=== PATIENT | male | born 1980 | race Hispanic/Latino ===

== ENCOUNTER 2022-01-15 17:19 | Emergency (ER) | payer OTHER, MEDICAID, SELFPAY ==
[2022-01-15 17:21] VITALS: BP 138/100; PULSE 78; RESP 14; TEMP 36.4; O2SAT 98; BMI 25.4
--- NOTE | 2022-01-15 17:52 | EDS_ITS ---
HPI <BETY Soriano - Last Filed: 01/15/22 18:53> History of Present Illness Chief Complaint: Head Injury Narrative Narrative: 41-year-old male with no significant medical history was at work at [employer], he was working with a piece of equipment that went up and down, a piece of metal went down, striking the left side of the head. Patient states he did not get knocked out however he does not remember everything about the injury. He states that he feels spacey, he felt nauseated and dizzy. Patient denies any vomiting. 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 Other than a headache, the patient feels better. He is here for evaluation [facility] <BETY Soriano - Last Filed: 01/15/22 18:53> [facility] Home Medications ondansetron 4 mg disintegrating tablet 4 mg PO Q8H PRN PRN Nausea #10 tabs 01/16/22 [Rx Last Taken Unknown] Allergy/AdvReac Type Severity Reaction Status Date / Time No Known Allergies Allergy Verified 01/16/22 14:34 Surgical History History of appendectomy Social History Smoking Status: Current every day smoker tobacco type: cigarettes ROS <BETY Soriano - Last Filed: 01/15/22 18:53> ROS ED ROS Narrative Constitutional: Negative for fever, chills, weight loss, weakness Eyes: Negative for vision loss, vision change, double vision ENT: Negative for any sore throat, ear pain, congestion Cardiovascular: Negative for any chest pain, tightness, palpitations Respiratory: Negative for any cough, sputum production, hemoptysis, dyspnea, dyspnea on exertion, orthopnea Gastrointestinal: Negative for any abdominal pain, nausea, vomiting, diarrhea, constipation, blood in stool, blood in vomit : Negative for any urinary frequency, dysuria, retention, blood in urine Muscle skeletal: Negative for any muscle joint pain, stiffness, myalgias, arthralgias, neck pain, back pain Neurological: Negative for any syncope, numbness or tingling, dizziness., Positive for headache Skin: Negative for any rashes, lumps, itching, abrasions, lacerations Psychiatric: Negative for any depression, anxiety, stress, suicidal ideation, homicidal ideation Hematologic: Negative for any easy bruising, excessive bruising, easy bleeding Allergies: Negative for any eczema, hives, rash EXAM <BETY Soriano - Last Filed: 01/15/22 18:53> Physical Exam Narrative Exam Narrative: Vital signs reviewed. Patient alert and orient x4. HEET: Head normocephalic atraumatic, TMs clear bilaterally. Posterior pharynx is clear, moist mucous membranes. Nares clear bilaterally. Pupils are equal round reactive to light. Negative for any hemotympanum, negative for any hematoma. Patient does have an abrasion to the left parietal area, slight hematoma. Neck: Supple with no lymphadenopathy or tenderness. No signs of meningismus, negative jolt sign. Cardiac: Regular rate and rhythm no murmurs gallops or rubs, equal peripheral pulses bilaterally. Respiratory: Lungs clear to auscultation bilaterally. No chest tenderness. Abdomen: Soft, nontender, nondistended. No abdominal bruit or pulsatile masses. No hepatosplenomegaly Extremities: No peripheral edema, no signs of gross trauma or deformity. Active full range of motion of all extremities. Neuro: Cranial nerves II through XII intact, no focal neurological deficits. Skin: Clean dry and intact with no rash, purpura, petechiae, vesicles or pustules. Backs/flank: No CVA tenderness, no midline spinal tenderness, no deformity. Psych: Normal mood and affect. No SI, HI or acute psychosis. Const Vital Signs: 01/15/22 17:21 01/15/22 17:31 Temperature 97.6 F L Temperature Source Temporal Pulse Rate 78 Respiratory Rate 14 Respiratory Effort Normal Non-Labored Respiratory Depth Normal Respiratory Pattern Normal Blood Pressure 138/100 H Blood Pressure Mean 112 Pulse Ox 98 Oxygen Delivery Method Room Air Positive well nourished and well developed General Appearance ED: well developed <Dr. Marylin Swift DO - Last Filed: 01/18/22 08:53> Physical Exam Const Vital Signs: 01/15/22 17:21 01/15/22 17:31 Temperature 97.6 F L Temperature Source Temporal Pulse Rate 78 Respiratory Rate 14 Respiratory Effort Normal Non-Labored Respiratory Depth Normal Respiratory Pattern Normal Blood Pressure 138/100 H Blood Pressure Mean 112 Pulse Ox 98 Oxygen Delivery Method Room Air MDM <BETY Soriano - Last Filed: 01/15/22 18:53> MDM Radiography Diagnostic Testing: Clinical Impression(s) from Imaging Studies Brain CT 01/15/22 18:00 IMPRESSION: No acute intracranial finding. Electronically Signed: Kaiden Flaherty MD at 19:14 EDT , Treatment and Re-Evaluation Narrative: Patient appears well, patient appears nontoxic, vital signs are stable. Patient presents to the emergency department after head injury while at work. Patient physical examination is consistent with a concussion. Patient did receive CT scan of the brain which was unremarkable for any acute process. Patient will be diagnosed with a concussion, hematoma to the left parietal scalp. Patient instructed to use ibuprofen, Tylenol, he will maintain hydration and follow-up with the [facility]. He is instructed to return for any worsening symptoms. He may return to work tomorrow however he instructed to maintain hydration and to return for any worsening headache, fever, chills, nausea or vomiting. Patient stable for discharge <Dr. Marylin Swift, DO - Last Filed: 01/18/22 08:53> [facility] Narrative Medical decision making narrative: I have personally performed a face to face assessment of the patient and have reviewed the DAVID Note. I performed a substantive portion of the visit including all aspects of the following. My lewis findings include: History is patient is a 41-year-old male with no significant past medical history presenting with head close head injury. This occurred at work. Patient was struck on the head by a piece of metal that weighs proximally 60 pounds was on a hedge. It fell down hitting the left side of his head. He was dazed and does not remember the details of the event but denies any loss of conscious. He is not on any blood thinners. Initially had some tingling on the left side of the body but this is since resolved. Denies any vision changes. No other complaints at this time. Exam is Patient seen in bed. No acute distress. Head normocephalic with contusion/abrasion to the right temporal/parietal scalp. No signs of obvious skull fracture. Eyes PERRL and EOMI. Moist mucosal membranes. Neck is supple with normal range of motion. No midline tenderness. Chest atraumatic. No chest wall tenderness or crepitus. Lungs clear to auscultation bilaterally. Heart regular rate and rhythm. Abdomen soft nontender. Cranial nerves II through XII grossly intact. No focal neurologic deficits appreciated. Normal movement of the extremities. Normal coordination. Patient has approximately 4 cm linear but slightly irregular abrasion/contusion to the left scalp as described above. No other wounds appreciated Medical Decison Making patient is evaluated for head injury at work. Workmen's Compensation prior work as well. CT of the brain does not show any acute skull fracture or intracranial findings. Likely patient has a closed head injury with concussion. Will be discharged home with concussion care instructions. He verbalized agreement understand this plan. Is given dose of Zofran in the emergency room. Other additions or changes: [None] Radiography Diagnostic Testing: Clinical Impression(s) from Imaging Studies Brain CT 01/15/22 18:00 IMPRESSION: No acute intracranial finding. Electronically Signed: Kaiden Flaherty MD at 19:14 EDT , Discharge Plan Triage Chief Complaint: Head Injury ED Midlevel Provider: Wilfrido Guerra ED Provider: Marylin Swift Dx/Rx/DC Orders Clinical Impression: Concussion, Hematoma of left parietal scalp Instructions: After a Concussion, Concussion Dc, ED Scalp Contusion, ED Hematoma Prescriptions: No Action ondansetron [ondansetron] 4 mg tablet,disintegrating 4 mg PO Q8H PRN PRN (Reason: Nausea) Qty: 10 0RF Primary Care Provider: Care Physician,No Primary Referrals: Care Physician,No Primary [Primary Care Provider] - Clinic,[facility] [NON-STAFF] - Activity Restrictions/Additional Instructions: Please use ibuprofen, Tylenol for any pain. Please follow-up with the [facility] clinic. Print Language: Chinese Disposition Disposition: Home, Self Care Discharge Date/Time: 01/15/22 19:33
--- NOTE | 2022-01-15 18:00 | CT_ITS ---
STUDY: CT BRAIN WITHOUT CONTRAST REASON FOR EXAM: Male, 41 years old. Pain after trauma RADIATION DOSAGE (If Supplied By Facility): CTDIvol = ( 44.99 ) mGy, DLP = ( 863.60 ) mGycm TECHNIQUE: Transaxial CT imaging of the brain was performed without administration of intravenous contrast material. Individualized dose optimization techniques were used for this CT. COMPARISON: No relevant priors. FINDINGS: There is no intra-/extra-axial fluid collection, mass effect, or midline shift. The reeves/white matter junction is preserved. The basal cisterns are patent. Minimal mucoperiosteal thickening of the bilateral maxillary sinuses is seen. There is old blowout fracture of the medial wall of the left lobe.. CT/Brain/Head without Contrast IMPRESSION: No acute intracranial finding. Electronically Signed: Kaiden Flaherty MD at 19:14 EDT ,
== END 2022-01-15 19:33 | disposition home or self-care (01) ==
PROVIDERS: Emergency Provider Emergency Medicine; Visit Provider Emergency Medicine
DX: S06.0X0A Concussion without loss of consciousness, initial encounter (principal); S00.03XA Contusion of scalp, initial encounter; W20.8XXA Other cause of strike by thrown, projected or falling object, initial encounter; Y93.89 Activity, other specified; Y99.0 Civilian activity done for income or pay; Y92.63 Factory as the place of occurrence of the external cause; F17.210 Nicotine dependence, cigarettes, uncomplicated
CPT/HCPCS: 70450; 99282

== ENCOUNTER 2022-01-16 14:31 | Emergency (ER) | payer OTHER, SELFPAY ==
[2022-01-16 14:31] VITALS: BP 143/93; PULSE 72; RESP 16; TEMP 36.3; O2SAT 97; BMI 31.2
--- NOTE | 2022-01-16 14:42 | EX.ED.DYSGE1 ---
HPI History of Present Illness Chief Complaint: Head Injury Detail of Chief Complaint: Head injury/concussion symptoms Informant: patient Narrative Narrative: Patient presents to the emergency department with complaint of a head injury that occurred yesterday while at work. Patient states that a piece of metal hit him on the left side of the head. He was not knocked unconscious. He was seen in the emergency department and had a CT scan of the brain which was unremarkable. Patient states that he still not feeling well. He is having a hard time finding words to say. He complains of a headache he has had nausea as well. He denies vomiting. Patient has taken Tylenol it does seem to help his headache. Patient still feels lightheaded and dizzy with walking. Prior similar symptoms: No PFSH PFSH Home Medications ondansetron 4 mg disintegrating tablet 4 mg PO Q8H PRN PRN Nausea #10 tabs 01/16/22 [Rx Last Taken Unknown] Allergy/AdvReac Type Severity Reaction Status Date / Time No Known Allergies Allergy Verified 01/16/22 14:34 Surgical History History of appendectomy Social History Smoking Status: Current every day smoker tobacco type: cigarettes ROS ROS ED Review of Systems ROS Unobtainable: other Constitutional Constitutional ED: Reports lethargy; Denies chills, fever(s), sweats or weight loss Eyes Eyes: Denies blurry vision, change in vision or diplopia ENT ENT ED: Denies rhinorrhea or sore throat Cardiovascular Cardiovascular: Reports chest pain and racing heartbeat; Denies orthopnea Respiratory/Chest Respiratory/Chest: Reports dyspnea and dyspnea on exertion; Denies cough, orthopnea or sputum Gastrointestinal Gastrointestinal: Reports nausea; Denies abdominal pain, diarrhea or vomiting Genitourinary Genitourinary ED: Denies dysuria, hematuria or urinary frequency Musculoskeletal Musculoskeletal: Denies arthralgias, back pain, myalgias or neck pain Integumentary Denies abscess, Abrasions or rash Neurologic Neurologic: Reports headache(s) and other Details: Dizziness ; Denies weakness Psychiatric Psychiatric: Denies anxiety, depression or suicidal thoughts Endocrine Endocrinology: Denies polydipsia, polyphagia or polyuria Hematologic/Lymphatic Hematologic/Lymphatic: Denies easy bleeding, easy bruising or lymphadenopathy Allergic/Immunologic Allergic/Immunologic ED: Denies mouth swelling, tongue swelling or urticaria EXAM Physical Exam Const Vital Signs: 01/16/22 14:31 01/16/22 14:36 Temperature 97.3 F L Temperature Source Temporal Pulse Rate 72 Respiratory Rate 16 Respiratory Effort Normal Blood Pressure 143/93 H Blood Pressure Mean 109 Pulse Ox 97 Oxygen Delivery Method Room Air Positive well nourished and well developed General Appearance ED: well developed and NAD HEENT Reports TM's clear and moist mucous membranes normocephalic and atraumatic; Negative for trauma or tenderness Tympanic Membrane ED: Yes TM's clear Eyes PERRL and EOMs intact bilaterally General Eye ED: Negative for pale conjunctiva or scleral icterus Neck no lymphadenopathy, supple and no JVD General: Negative for tenderness Chest Wall inspection of chest normal and palpation of chest normal Chest: Negative for tenderness Resp normal respiratory effort and clear to auscultation bilaterally Effort and Inspection: Negative for respiratory distress or pain with movement Auscultation: Negative for rhonchi, wheezes or diminished lung sounds Cardio regular rate, regular rhythm, S1 normal heart sound, S2 normal heart sound and no murmurs Peripheral Pulses: pulses 2+ throughout GI normal to inspection, nondistended, normoactive bowel sounds, soft to palpation, non-tender, non-distended and no masses Back/Spine no CVA tenderness and no thoracic nor lumbar tenderness Extremity normal to inspection General Extremety ED: Negative for edema General Extremity: Negative for edema Neuro oriented x3, CN's II-XII intact bilaterally, no sensory deficits noted and gait normal Neuro Narrative: Finger-nose and heel vicente testing within normal limits, negative Romberg, negative pronator drift, fundi benign Sensorium / Orientation: awake, alert, oriented to person, oriented to place and oriented to time Motor Exam: strength 5/5 throughout and strength abnormal Psych mental status grossly normal Skin no rashes or lesions noted and no wounds MDM MDM MDM Narrative Medical decision making narrative: Patient experiencing postconcussive syndrome. Patient will be given a dose of Zofran and department a prescription for Zofran. I will write him off work for 2 days. Patient advised to rest. I do not feel any further imaging is indicated at this time. Patient to return to the ER if vomiting, difficulty with balance or speech or condition should worsen anyway. Discharge Plan Triage Chief Complaint: Head Injury ED Provider: Severino Velazquez Dx/Rx/DC Orders Clinical Impression: Concussion Instructions: Coping with Concussion, ED Concussion Prescriptions: New ondansetron [ondansetron] 4 mg tablet,disintegrating 4 mg PO Q8H PRN PRN (Reason: Nausea) Qty: 10 0RF Primary Care Provider: Care Physician,No Primary Referrals: Corporate,Care [GROUP OF PHYSICIANS] - 3-5 Days Care Physician,No Primary [Primary Care Provider] - Disposition Disposition: Home, Self Care
[2022-01-16] MEDS: Ondansetron ODT 4 MG Tablet PO (14:45)
== END 2022-01-16 14:58 | disposition home or self-care (01) ==
LOC: ED 14:50
PROVIDERS: Emergency Provider Emergency Medicine; Visit Provider Emergency Medicine
DX: S06.0X0A Concussion without loss of consciousness, initial encounter (principal); W22.8XXA Striking against or struck by other objects, initial encounter; Y99.0 Civilian activity done for income or pay; F17.210 Nicotine dependence, cigarettes, uncomplicated
CPT/HCPCS: 99283

== ENCOUNTER 2022-03-18 12:30 | Outpatient (RCR) | payer OTHER, SELFPAY ==
--- NOTE | 2022-02-01 13:45 | HP.PTEVAL ---
Patient's Visit Information NAMRATA SIMMONS is a 41 year old M referred to Physical Therapy by MURRAY Bryan with a diagnosis of Concussion with loss of consciousness. Date of Evaluation: 02/01/22 Physical Therapist: Perez Murdock DPT, OCS, CSCS - Visit Plan Frequency: 1-2x /Week Duration: 4-6 Weeks Plan: 1-2x/week for 4-6 as needed for monitor positional needs and progress adaptation exercises/habituation vestibular ex. Next session: check positional and progress VOR, may need MSQ. - Subjective I got injured at work as a piece of metal fell on head 2 weeks ahead. Knocked him out and got concussion. Catscan in ER was Ok, just in hospital one day. Was confused in hospital and does not remember much. Had dizzyness and throwing up alot. Had a hard time speaking and still does,. Improving. Still gets dizzy standing for long periods of time and with bending over or rapid movement.Things spin for short duration. Overall 80% better. 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 Gets migraines now which gets worse with work. MANZANARES are back and L and worse with focussing alot and moving. Sleep is not great as he finds it hard to sleep at times. Gets dizzy getting up or lying down. Lives with family Jenae finley, avoiding everythign at home right now. Hobbies: none. Was nauseous once this weekend. - Pain MANZANARES Pain Intensity (Out of 10): 0 Pain Intensity Range: 0, 8 - Objective Walks slow but normal. Trasnfers I bed and chair. steps reciprocal without rail necessary. UE and neck AROM WFL and painfree. - L HD, + R HD for dizzyness and possible up nystagmus, treated with anita and then gone. Oculomotor: no nystagmus with gaze or head shake. - skew eye deviation. - ocular tilt. convergence makes dizzy but normal function. - head thrust. Pursuit and saccades are labored but funcitonal, no dizzyness, hard to focus. VOR is dizzy inducing at 60 seconds 4/10 for 30 seconds. - Balance/Special Test Scores Functional Gait Assessment Score: 29 % Disability: 3.3400 Dizziness Score: 54 - Goals Goal 1:: abolish dizzyness with position change Goal Time Frame: 2-4 Weeks Goal 2:: Pt feel overall dizzyness is 99% improved Goal Time Frame: 4-6 Weeks Goal 3:: Work full days without increased symptoms Goal Time Frame: 4-6 Weeks Goal 4:: DHI score 20 or less Goal Time Frame: 4-6 Weeks - Rehabilitation Potential Physical Therapy Diagnosis: vestibular symptoms effecting comfort and funciton Rehabilitation Potential: Good - Anticipated Interventions Patient/Client Instruction: Educate patient on: Condition, Plan of Care For the Purpose of:: To decrease pain, To increase tolerance to activity/condition/position, To improve ability of physical actions for home/community/work/leisure Therapeutic Exercise to Include: Strength training Comment: psoitional, vestibular For the Purpose of:: To decrease pain, To increase tolerance to activity/condition/position, To improve ability of physical actions for home/community/work/leisure Thank you for the opportunity to evaluate your patient. For Medicare and Medicare HMO plans, please review the plan of care and approve it. It will need to be FAXED BACK to us at [phone] for Medicare purposes. For Medicare only, by signing this I certify the plan of care. Please let me know if there are questions or concerns regarding this plan of care. Physician Signature: Date:
--- NOTE | 2022-02-15 14:27 | HP.PTREVAL_ITS ---
MURRAY Bryan, It has been my pleasure to treat NAMRATA SIMMONS over the last 3 visits for Concussion with loss of consciousness. Please see the progress note below for an update on the physical therapy plan of care! Subjective: Did my exercises for 60 seconds 3x/day. Its been helping. Has not felt nearly as bad as he used to. Gets MANZANARES once in a while and not going away. Migraines and dizzyness happen for 30-60 minutes and advil helps, dizzyness lasts 5 minutes. Stress can be part of the issue. Manzanares earlier today. Gets anxious when he goes out. To doctor today. Stretch helps soreness but not MANZANARES. Objective/Function: VOr x2 just quick dizzyness. VOR x 2 with busy background could only do 30 seconds and very dizzy. head turns quick moderate dizzy. None o these last long. Pt is iimproving overall but still has some expected dizzy like symptoms with stress and busy visual environment. he wants to return to work and likely could as long as he does nto have to climb ladders. He will discuss that with doctor today. Plan Plan: Progressing quicker than expected adn appropriate to continue PT. progress habituation and adaptation ex. Balance/Gait/Functional tests - Balance/Special Test Scores Functional Gait Assessment Score: 29 % Disability: 3.3400 Dizziness Score: 54 Goals Goal 1:: abolish dizzyness with position change Goal Time Frame: 2-4 Weeks Goal Progress: Goal Met Goal 2:: Pt feel overall dizzyness is 99% improved Goal Time Frame: 4-6 Weeks Goal Progress: 80% Goal 3:: Work full days without increased symptoms Goal Time Frame: 4-6 Weeks Goal Progress: light duty met Goal 4:: DHI score 20 or less Goal Time Frame: 4-6 Weeks Anticipated Interventions Patient/Client Instruction: Educate patient on: Condition, Plan of Care For the Purpose of:: To decrease pain, To increase tolerance to activity/condition/position, To improve ability of physical actions for home/community/work/leisure Therapeutic Exercise to Include: Strength training Comment: psoitional, vestibular For the Purpose of:: To decrease pain, To increase tolerance to activity/condition/position, To improve ability of physical actions for h ome/community/work/leisure Please do not hesitate to contact me at [phone] by phone or if you have questions or concerns regarding this new plan of care! Sincerely, Perez Murdock, DPT, OCS, CSCS
--- NOTE | 2022-03-18 12:49 | HP.PTDCSUM ---
It has been my pleasure to treat NAMRATA SIMMONS referred by MURRAY Bryan, with the diagnosis of Concussion with loss of consciousness for a total of 5 visit(s). Discharge Date: 03/18/22 Please see the following information for a summary of their discharge status. Subjective: Much better. Started going up and down ladder practicing and felt good. Stretching to touch toes and recover which helps. Very little dizzyness with that now. Head turns are still go. To doctor after this visit. Still on ladder restrictions at work but ready to be done with those. Stress MANZANARES now and then. MANZANARES Pain Intensity (Out of 10): 4 % Improvement: 99 Objective/Function: Walks I, steps I reciprocally without rail. Bending and recover and looking up gives no symptoms. Pt feels better on the ladder sas he has been practicing in a controlled environment. Goal 1:: abolish dizzyness with position change Goal Progress: Goal Met Goal 2:: Pt feel overall dizzyness is 99% improved Goal Progress: Goal Met Goal 3:: Work full days without increased symptoms Goal Progress: Goal Met Goal 4:: DHI score 20 or less Goal Progress: Goal Met Plan: d/c, pt doing well and near back to normal with symptoms/balance, putside of minimal MANZANARES. Discharge Comments: Pt doing well and progressed back to normal If there are questions or concerns regarding this patient's physical therapy, please feel free to call me at [phone]. Thank you for the referral of this patient. Sincerely, Perez Murodck, DPT, OCS, CSCS Balance/Gait/Functional tests - Balance/Special Test Scores Functional Gait Assessment Score: 30 % Disability: 0 Dizziness Score: 6
== END 2022-03-18 13:26 | disposition home or self-care (01) ==
LOC: PT 12:30
PROVIDERS: Visit Provider Physician Assistant
DX: S06.0X9D Concussion with loss of consciousness of unspecified duration, subsequent encounter (principal); X58.XXXD Exposure to other specified factors, subsequent encounter
CPT/HCPCS: 97162; 97164; 97530